=== PATIENT | female | born 1975 | race American Indian/Alaskan Native ===

== ENCOUNTER 2016-10-05 14:41 | Inpatient (IN) | payer BC, OTHER ==
[2016-10-05] MEDS ORDERED: Morphine 4 MG/ML VIAL IV STA (16:02)
[2016-10-05] MEDS ORDERED: ceFAZolin 1 GM in Sodium Chloride 0.9% 100 ML IVPB STA (16:02)
--- NOTE | 2016-10-05 16:21 | ED PDOC ---
Lower Extremity Pain/Injury Time Seen by Provider: 10/05/16 15:42 Chief Complaint (Nursing): Lower Extremity Problem/Injury Chief Complaint (Provider): Right leg pain History Per: Patient History/Exam Limitations: no limitations Onset/Duration Of Symptoms: Days (yesterday), Persistent, Worse Since (yesterday ) Current Symptoms Are (Timing): Still Present Severity: Severe Pain Scale Rating Of: 9 Additional History Per: Patient Additional Complaint(s): CC: Right leg pain. HPI: 41 yo female pt without PMH presents to the ED with pain in her R leg since yesterday worsening today, 12/11, sharp, she apply Bengay and the leg becomes red. She takes Motrin for pain without relief. Also refers back pain yesterday that improve with Motrin. Associated erythema over R leg and R foot, swelling and warm. Denies fever, nausea, vomiting, headache, injury, any other pain. L lower extremity is normal. PMH: none. PSH: C- section on 2013. Social: smoking 1 pack per day, alcohol occasional, denies any recreational drugs. Meds: Motrin for pain. Past Medical History Reviewed: Nursing Documentation, Vital Signs Vital Signs: Last Vital Signs Temp 99.3 F 10/05/16 15:11 Pulse 100 H 10/05/16 15:11 Resp 18 10/05/16 15:11 BP 119/87 10/05/16 15:11 Pulse Ox 99 10/05/16 15:11 - Medical History PMH: Denies: Asthma - Surgical History Surgical History: ( on 2013) - Family History Family History: States: Unknown Family Hx - Living Arrangements Living Arrangements: Alone - Social History Current smoker - smoking cessation education provided: Yes SMOKER/PACKS PER DAY:: 1 Alcohol: Occasional Drugs: Denies - Immunization History Hx Tetanus Toxoid Vaccination: No Hx Influenza Vaccination: No Hx Pneumococcal Vaccination: No - Allergies Allergies/Adverse Reactions: Allergies Allergy/AdvReac Type Severity Reaction Status Date / Time No Known Allergies Allergy Verified 02/23/16 19:07 Wells Criteria for PE - Wells Criteria for Pulmonary Embolism Clinical Signs and Symptoms of DVT: No P.E is #1 Diagnosis, or Equally Likely: No Heart Rate >100: No Immobilization at least 3 days;Surgery previous 4 weeks: No Previous, objectively diagnosed PE or DVT: No Hemoptysis: No Malignancy w/treatment within 6 months, or palliative: No Total Score: 0 Review of Systems ROS Statement: Except As Marked, All Systems Reviewed And Found Negative Constitutional: Negative for: Fever, Chills, Sweats, Weakness, Malaise, Weight loss Eyes: Negative for: Pain, Vision Change ENT: Negative for: Ear Pain, Nose Pain, Mouth Pain Cardiovascular: Negative for: Chest Pain, Palpitations, Edema, Light Headedness Respiratory: Negative for: Cough, Shortness of Breath Gastrointestinal: Negative for: Nausea, Vomiting, Abdominal Pain Genitourinary Female: Negative for: Dysuria, Frequency, Incontinence, Pelvic Pain Musculoskeletal: Negative for: Neck Pain Skin: Positive for: Rash (red painless, over right thigh ) Neurological: Negative for: Weakness, Numbness, Altered Mental Status, Headache Psych: Negative for: Anxiety, Depression Physical Exam - Reviewed Nursing Documentation Reviewed: Yes Vital Signs Reviewed: Yes - Physical Exam Appears: Positive for: Well, No Acute Distress Head Exam: Positive for: ATRAUMATIC, NORMOCEPHALIC Skin: Positive for: Normal Color, Dry Eye Exam: Positive for: Normal appearance, EOMI, PERRL ENT: Positive for: Normal ENT Inspection Neck: Positive for: Normal Cardiovascular/Chest: Positive for: Regular Rate, Rhythm. Negative for: Chest Non Tender, Murmur Respiratory: Positive for: Normal Breath Sounds Pulses-Radial (L): 2+ Pulses-Radial (R): 2+ Gastrointestinal/Abdominal: Positive for: Normal Exam Back: Positive for: Normal Inspection Extremity: Positive for: Normal ROM, Tenderness (on right leg ), Calf Tenderness (on right leg), Swelling (right leg and ankle) Lymphatic: Negative for: Adenopathy Neurologic/Psych: Positive for: Alert, railroad carman II-XII, Oriented - Laboratory Results Result Diagrams: 10/05/16 16:30 10/05/16 17:00 Urine POC: Sent To The Lab For Verification - ECG O2 Sat by Pulse Oximetry: 99 Pulse Ox Interpretation: Normal - Progress Re-evaluation Time: 17:59 Condition: Improving,but remains with symptoms Medical Decision Making Medical Decision Making: Impression: 41 yo female that presents with Right leg pain, erythema and swelling since yesterday. Plan: CBC CMP PTT PT Blood culture. Urine test. Urine dipstick. VBG. Duplex US right lower extremity. Morphine. Ancef. Disposition - Clinical Impression Clinical Impression: Cellulitis - Patient ED Disposition Is Patient to be Admitted: Yes Doctor Will See Patient In The: ED Counseled Patient/Family Regarding: Smoking Cessation - Disposition Disposition Time: 18:16 Condition: STABLE - Pt Status Changed To: Hospital Disposition Of: Observation
[2016-10-05 17:07] LABS: BASO % 0.2 % (0.0-2.0); HEMOGLOBIN 12.4 g/dL (12.0-16.0); LYMPH # 1.1 K/uL (1.0-4.3); LYMPH % 6.5 % (20.0-40.0); MEAN CELL VOLUME 92.4 fl (81.0-99.0); MEAN CORPUSCULAR HEMOGLOBIN 30.6 pg (27.0-31.0); MEAN CORPUSCULAR HGB CONC 33.1 g/dL (33.0-37.0); MEAN PLATELET VOLUME 8.8 fl (7.2-11.7); MONO # 0.6 K/uL (0.0-0.8); MONO % 3.6 % (0.0-10.0); NEUT # 14.5 K/uL (1.8-7.0); NEUT % 89.7 % (50.0-75.0); PLATELET COUNT 199 K/uL (130-400); RBC 4.06 Mil/uL (3.80-5.20); RED CELL DISTRIBUTION WIDTH 13.3 % (11.5-14.5); WHITE BLOOD COUNT 16.1 K/uL (4.8-10.8)
--- NOTE | 2016-10-05 17:12 | US ---
PROCEDURE: Right lower extremity venous duplex Doppler. HISTORY: Pain, swelling, redness COMPARISON: None available. TECHNIQUE: Common femoral, superficial femoral, popliteal and posterior tibial veins were evaluated. Flow was assessed with color Doppler, compressibility, assessment of phasic flow and augmentation response. FINDINGS: COMMON FEMORAL VEIN: Unremarkable. SUPERFICIAL FEMORAL VEIN: Unremarkable. POPLITEAL VEIN: Unremarkable. POSTERIOR TIBIAL VEIN: Unremarkable. OTHER FINDINGS: Multiple prominent right inguinal lymph nodes seen, nonspecific. Edema at the level of the right ankle. IMPRESSION: No evidence of deep venous thrombosis in the right lower extremity. Multiple prominent right inguinal lymph nodes seen, nonspecific. Edema at the level of the right ankle.
[2016-10-05 17:35] LABS: ALB/GLOB RATIO 1.3 (1.0-2.1); ALBUMIN 4.6 g/dL (3.5-5.0); ALT/SGPT 38 U/L (9-52); AST/SGOT 30 U/L (14-36); BLOOD UREA NITROGEN 13 mg/dl (7-17); CALCIUM 9.5 mg/dL (8.4-10.2); GFR AFRICAN-AMERICAN > 60; GFR NON-AFRICAN AMERICAN > 60
[2016-10-05 17:52] LABS: PROTHROMBIN TIME 19.2 Seconds (9.8-13.1)
[2016-10-05 17:53] LABS: INR 1.7 (0.9-1.2); PARTIAL THROMBOPLASTIN TIME 34.7 Seconds (25.6-37.1)
--- NOTE | 2016-10-05 18:39 | ED PDOC ---
- Laboratory Results Result Diagrams: 10/05/16 16:30 10/05/16 17:00 Urine POC: Sent To The Lab For Verification - ECG O2 Sat by Pulse Oximetry: 99 Disposition - Clinical Impression Clinical Impression: Cellulitis, Sepsis - POA Present On Arrival: None - Disposition Disposition: Admitted as In-Patient Disposition Time: 18:39 Condition: STABLE
[2016-10-05 18:48] LABS: VENOUS BLOOD GAS BASE EXCESS 1.3 mmol/L (0.0-2.0); VENOUS BLOOD GAS PCO2 47 mmHg (40-60); VENOUS BLOOD GAS PO2 18 mm/Hg (30-55); VENOUS BLOOD PH 7.37 (7.32-7.43)
[2016-10-05 18:51] LABS: ANISOCYTOSIS SLIGHT; BANDS 3 % (0-2); LYMPHOCYTE 9 % (20-50); MONOCYTE 4 % (0-10); NEUTROPHIL 84 % (42-75); PLATELET ESTIMATE NORMAL (NORMAL); TOTAL CELLS COUNTED 100
[2016-10-05] MEDS ORDERED: Piperacillin/Tazobact 3.375 GM in Sodium Chloride 0.9% 100 ML IVPB STA (19:01)
[2016-10-05] MEDS ORDERED: Vancomycin 1 g Inj ONE (20:09)
[2016-10-05] MEDS ORDERED: Piperacillin/Tazobact 3.375 gm Inj IVPB ONE (20:10)
--- NOTE | 2016-10-05 20:24 | CP.PCM.HP ---
History of Present Illness - History of Present Illness History of Present Illness: CC: RLE redness HPI: This is a 41 y/o female with no MHx who comes in with redness and pain of RLE. States that redness started toward the bottom of the leg/foot yesterday, and has been extending, now with red streaks up the thigh. Denies f/c/n/v/d. Denies any injury or insect/animal bite prior to onset of symptoms. Denies any prior history of MRSA infections. ROS: 14 systems reviewed, negative other than HPI MHx: None SHx: C section Allergies: NKDA Medications: None Family Hx: Reviewed, no relevant history patient can provide Social Hx: Lives alone, occ EtOH; smokes about 1 ppd for 10+ years Present on Admission - Present on Admission Any Indicators Present on Admission: No Past Patient History - Past Social History Alcohol: Occasional Drugs: Denies - CARDIAC Hx Cardiac Disorders: No - PULMONARY Hx Respiratory Disorders: No - NEUROLOGICAL Hx Neurological Disorder: No - HEENT Hx HEENT Problems: No - RENAL Hx Chronic Kidney Disease: No - ENDOCRINE/METABOLIC Hx Endocrine Disorders: No - HEMATOLOGICAL/ONCOLOGICAL Hx Blood Disorders: No - INTEGUMENTARY Hx Dermatological Problems: No - MUSCULOSKELETAL/RHEUMATOLOGICAL Hx Musculoskeletal Disorders: No - GENITOURINARY/GYNECOLOGICAL Hx Genitourinary Disorders: No - PSYCHIATRIC Hx Psychophysiologic Disorder: No Meds Allergies/Adverse Reactions: Allergies Allergy/AdvReac Type Severity Reaction Status Date / Time No Known Allergies Allergy Verified 02/23/16 19:07 Physical Exam - Constitutional Appears: No Acute Distress - Head Exam Head Exam: ATRAUMATIC, NORMOCEPHALIC - Eye Exam Eye Exam: EOMI, PERRL - ENT Exam ENT Exam: Mucous Membranes Moist - Neck Exam Neck exam: Positive for: Full Rom - Respiratory Exam Respiratory Exam: Clear to Auscultation Bilateral, NORMAL BREATHING PATTERN - Cardiovascular Exam Cardiovascular Exam: REGULAR RHYTHM, +S1, +S2 - GI/Abdominal Exam GI & Abdominal Exam: Normal Bowel Sounds, Soft - Extremities Exam Extremities exam: Positive for: full ROM Additional comments: RLE with patchy redness and streaks up to groin; some warmth to touch and some mild tenderness - Neurological Exam Neurological exam: Alert, CN II-XII Intact, Oriented x3 - Psychiatric Exam Psychiatric exam: Normal Affect, Normal Mood - Skin Skin Exam: Dry, Warm Results - Vital Signs Recent Vital Signs: Last Vital Signs Temp 98.7 F 10/05/16 20:19 Pulse 105 H 10/05/16 20:19 Resp 18 10/05/16 20:19 BP 125/73 10/05/16 20:19 Pulse Ox 98 10/05/16 20:09 - Labs Result Diagrams: 10/05/16 16:30 10/05/16 17:00 Labs: Laboratory Results - last 24 hr 10/05/16 18:44 pO2 18 L VBG pH 7.37 VBG pCO2 47 VBG HCO3 24.0 VBG Total CO2 28.6 H VBG O2 Sat (Calc) 34.9 L VBG Base Excess 1.3 VBG Potassium 3.8 Sodium 138.0 Chloride 104.0 Glucose 63 L Lactate 1.3 FiO2 21.0 Venous Blood Potassium 3.8 - Imaging and Cardiology Venous US Status: Report reviewed by me (no DVT) Assessment & Plan (1) Cellulitis Assessment and Plan: 41 y/o female with no MHx presenting with extensive RLE cellulitis. -Continue Vanco 1 g q12h IV; will D/C Zosyn, as no complicating features -Tylenol for pain/fever PRN -SQ Lovenox for DVT PPx Status: Acute (2) DVT prophylaxis Status: Acute
[2016-10-06 05:51] LABS: HEMOGLOBIN 11.9 g/dL (12.0-16.0); MEAN CELL VOLUME 92.4 fl (81.0-99.0); MEAN CORPUSCULAR HEMOGLOBIN 30.5 pg (27.0-31.0); RBC 3.89 Mil/uL (3.80-5.20); RED CELL DISTRIBUTION WIDTH 13.4 % (11.5-14.5); WHITE BLOOD COUNT 13.6 K/uL (4.8-10.8)
[2016-10-06 06:17] LABS: BLOOD UREA NITROGEN 11 mg/dl (7-17); CALCIUM 8.7 mg/dL (8.4-10.2); GFR AFRICAN-AMERICAN > 60; GFR NON-AFRICAN AMERICAN > 60
[2016-10-06] MEDS: Enoxaparin 40 mg Syringe SC SCH (08:41)
--- NOTE | 2016-10-06 11:05 | CP.PCM.PN ---
Subjective - Date & Time of Evaluation Date of Evaluation: 10/06/16 Time of Evaluation: 10:30 - Subjective Subjective: Febrile to 103 this morning sl RLE pain no open wound on LE denies CP no SOB no abd pain Objective - Vital Signs/Intake and Output Vital Signs (last 24 hours): Temp Pulse Resp BP Pulse Ox 99.6 F 89 18 125/83 97 10/06/16 08:00 10/06/16 08:00 10/06/16 08:00 10/06/16 08:00 10/06/16 08:00 - Medications Medications: Current Medications Acetaminophen (Tylenol 325mg Tab) 650 mg PO Q6 PRN PRN Reason: Pain, Mild (1-3) Acetaminophen (Tylenol 325mg Tab) 650 mg PO Q6 PRN PRN Reason: Fever >100.4 F Last Admin: 10/05/16 23:55 Dose: 650 mg Enoxaparin Sodium (Lovenox) 40 mg SC DAILY PAT PRN Reason: Protocol Last Admin: 10/06/16 08:41 Dose: 40 mg Vancomycin HCl 1 gm/ Sodium (Chloride) 250 mls @ 166.667 mls/hr IVPB Q12 PAT Last Admin: 10/06/16 08:41 Dose: 166.667 mls/hr - Labs Labs: 10/06/16 05:00 10/06/16 05:00 PT 19.2 Seconds (9.8-13.1) H 10/05/16 16:30 INR 1.7 (0.9-1.2) H 10/05/16 16:30 APTT 34.7 Seconds (25.6-37.1) 10/05/16 16:30 - Constitutional Appears: No Acute Distress - Head Exam Head Exam: ATRAUMATIC, NORMAL INSPECTION, NORMOCEPHALIC - Eye Exam Eye Exam: EOMI, Normal appearance, PERRL Pupil Exam: NORMAL ACCOMODATION - ENT Exam ENT Exam: Mucous Membranes Moist, Normal External Ear Exam - Neck Exam Neck Exam: Full ROM. absent: Meningismus - Respiratory Exam Respiratory Exam: NORMAL BREATHING PATTERN. absent: Respiratory Distress - Cardiovascular Exam Cardiovascular Exam: REGULAR RHYTHM, +S1, +S2 - GI/Abdominal Exam GI & Abdominal Exam: Soft, Normal Bowel Sounds. absent: Tenderness - Extremities Exam Extremities Exam: Full ROM, Normal Capillary Refill. absent: Calf Tenderness Additional comments: RLE : erythema, warmth, sl tenderness - Back Exam Back Exam: NORMAL INSPECTION. absent: CVA tenderness (L), CVA tenderness (R), paraspinal tenderness, vertebral tenderness - Neurological Exam Neurological Exam: Alert, Awake, CN II-XII Intact, Normal Gait, Oriented x3 Neuro motor strength exam: Left Upper Extremity: 5, Right Upper Extremity: 5, Left Lower Extremity: 5, Right Lower Extremity: 5 - Psychiatric Exam Psychiatric exam: Normal Affect, Normal Mood - Skin Skin Exam: Dry, Normal Color, Warm Assessment and Plan (1) Sepsis Status: Acute (2) Cellulitis Status: Acute (3) DVT prophylaxis Status: Acute - Assessment and Plan (Free Text) Assessment: 41 y/o female with no MHx came in with redness and pain of RLE. States that redness started toward the bottom of the leg/foot yesterday, and has been extending, now with red streaks up the thigh. Denies f/c/n/v/d. Denies any injury or insect/animal bite prior to onset of symptoms. Denies any prior history of MRSA infections. (1) Sepsis sec to Cellulitis Status: Acute Pt was febrile to 103, tachycardic, WBC 16K lactic acid normal cont IV Vanco Blood c/s Doppler US of LE : neg for DVT (2) Cellulitis , RLE Status: Acute (3) DVT prophylaxis Status: Acute Lovenox
[2016-10-07 06:28] LABS: BASO % 0.5 % (0.0-2.0); EOS # 0.3 K/uL (0.0-0.7); EOS % 3.4 % (0.0-4.0); HEMOGLOBIN 11.5 g/dL (12.0-16.0); LYMPH # 0.7 K/uL (1.0-4.3); LYMPH % 8.9 % (20.0-40.0); MEAN CELL VOLUME 92.8 fl (81.0-99.0); MEAN CORPUSCULAR HEMOGLOBIN 30.6 pg (27.0-31.0); MEAN CORPUSCULAR HGB CONC 32.9 g/dL (33.0-37.0); MEAN PLATELET VOLUME 8.6 fl (7.2-11.7); MONO # 0.7 K/uL (0.0-0.8); MONO % 9.6 % (0.0-10.0); NEUT # 5.9 K/uL (1.8-7.0); NEUT % 77.6 % (50.0-75.0); RBC 3.77 Mil/uL (3.80-5.20); WHITE BLOOD COUNT 7.6 K/uL (4.8-10.8)
[2016-10-07 06:52] LABS: BLOOD UREA NITROGEN 9 mg/dl (7-17); CALCIUM 8.5 mg/dL (8.4-10.2); GFR AFRICAN-AMERICAN > 60; GFR NON-AFRICAN AMERICAN > 60
[2016-10-07] MEDS: Enoxaparin 40 mg Syringe SC SCH (09:22)
--- NOTE | 2016-10-07 10:18 | CP.PCM.PN ---
Subjective - Date & Time of Evaluation Date of Evaluation: 10/07/16 Time of Evaluation: 10:00 - Subjective Subjective: No fever this am still with leg pain and redness no [employer] no SOB no abd pain Objective - Vital Signs/Intake and Output Vital Signs (last 24 hours): Temp Pulse Resp BP Pulse Ox 98.4 F 82 18 125/87 98 10/07/16 08:00 10/07/16 09:00 10/07/16 08:00 10/07/16 08:00 10/07/16 08:00 Intake and Output: 10/07/16 10/07/16 06:59 18:59 Intake Total 490 Balance 490 - Medications Medications: Current Medications Acetaminophen (Tylenol 325mg Tab) 650 mg PO Q6 PRN PRN Reason: Pain, Mild (1-3) Acetaminophen (Tylenol 325mg Tab) 650 mg PO Q6 PRN PRN Reason: Fever >100.4 F Last Admin: 10/06/16 17:00 Dose: 650 mg Enoxaparin Sodium (Lovenox) 40 mg SC DAILY PAT PRN Reason: Protocol Last Admin: 10/07/16 09:22 Dose: 40 mg Vancomycin HCl 1 gm/ Sodium (Chloride) 250 mls @ 166.667 mls/hr IVPB Q12 PAT Last Admin: 10/07/16 09:23 Dose: 166.667 mls/hr - Labs Labs: 10/07/16 05:00 10/07/16 05:00 PT 19.2 Seconds (9.8-13.1) H 10/05/16 16:30 INR 1.7 (0.9-1.2) H 10/05/16 16:30 APTT 34.7 Seconds (25.6-37.1) 10/05/16 16:30 - Constitutional Appears: No Acute Distress - Head Exam Head Exam: ATRAUMATIC, NORMAL INSPECTION, NORMOCEPHALIC - Eye Exam Eye Exam: EOMI, Normal appearance, PERRL Pupil Exam: NORMAL ACCOMODATION - ENT Exam ENT Exam: Mucous Membranes Moist, Normal External Ear Exam - Neck Exam Neck Exam: Full ROM. absent: Meningismus - Respiratory Exam Respiratory Exam: NORMAL BREATHING PATTERN. absent: Respiratory Distress - Cardiovascular Exam Cardiovascular Exam: REGULAR RHYTHM, +S1, +S2 - GI/Abdominal Exam GI & Abdominal Exam: Soft, Normal Bowel Sounds. absent: Tenderness - Extremities Exam Extremities Exam: Full ROM, Normal Capillary Refill. absent: Calf Tenderness Additional comments: RLE : erythema, warmth, sl tenderness lower leg - Back Exam Back Exam: NORMAL INSPECTION. absent: CVA tenderness (L), CVA tenderness (R), paraspinal tenderness, vertebral tenderness - Neurological Exam Neurological Exam: Alert, Awake, CN II-XII Intact, Normal Gait, Oriented x3 Neuro motor strength exam: Left Upper Extremity: 5, Right Upper Extremity: 5, Left Lower Extremity: 5, Right Lower Extremity: 5 - Psychiatric Exam Psychiatric exam: Normal Affect, Normal Mood - Skin Skin Exam: Dry, Normal Color, Warm Assessment and Plan (1) Sepsis Status: Acute (2) Cellulitis Status: Acute (3) DVT prophylaxis Status: Acute - Assessment and Plan (Free Text) Assessment: 41 y/o female with no MHx came in with redness and pain of RLE. States that redness started toward the bottom of the leg/foot yesterday, and has been extending, now with red streaks up the thigh. Denies f/c/n/v/d. Denies any injury or insect/animal bite prior to onset of symptoms. Denies any prior history of MRSA infections. (1) Sepsis sec to Cellulitis Status: Acute Pt was febrile to 103, tachycardic, WBC 16K WBC now trending down clinically improving lactic acid normal cont IV Vanco , check level Blood c/s: neg so far Doppler US of LE : neg for DVT (2) Cellulitis , RLE Status: Acute as above (3) DVT prophylaxis Status: Acute Lovenox
[2016-10-08 04:50] VITALS: O2SAT 99
[2016-10-08 07:56] LABS: BASO % 0.9 % (0.0-2.0); EOS # 0.3 K/uL (0.0-0.7); EOS % 5.9 % (0.0-4.0); HEMOGLOBIN 11.4 g/dL (12.0-16.0); LYMPH # 1.2 K/uL (1.0-4.3); LYMPH % 22.3 % (20.0-40.0); MEAN CELL VOLUME 91.9 fl (81.0-99.0); MEAN CORPUSCULAR HEMOGLOBIN 30.8 pg (27.0-31.0); MEAN CORPUSCULAR HGB CONC 33.5 g/dL (33.0-37.0); MEAN PLATELET VOLUME 8.4 fl (7.2-11.7); MONO # 0.6 K/uL (0.0-0.8); NEUT # 3.1 K/uL (1.8-7.0); NEUT % 58.9 % (50.0-75.0); RBC 3.71 Mil/uL (3.80-5.20); WHITE BLOOD COUNT 5.3 K/uL (4.8-10.8)
[2016-10-08 08:13] LABS: BLOOD UREA NITROGEN 13 mg/dl (7-17); CALCIUM 8.7 mg/dL (8.4-10.2); GFR AFRICAN-AMERICAN > 60; GFR NON-AFRICAN AMERICAN > 60
[2016-10-08 08:26] LABS: INR 1.1 (0.9-1.2); PROTHROMBIN TIME 12.8 Seconds (9.8-13.1)
[2016-10-08 08:27] VITALS: BP 139/82; RESP 20; TEMP 97.5
--- NOTE | 2016-10-08 09:01 | CP.PCM.DIS ---
Provider - Provider Date of Admission: 10/05/16 18:37 Attending physician: Carson Waters MD Primary care physician: None Time Spent in preparation of Discharge (in minutes): 20 Hospital Course - Lab Results Lab Results: Most Recent Lab Values WBC 5.3 K/uL (4.8-10.8) 10/08/16 06:30 RBC 3.71 Mil/uL (3.80-5.20) L 10/08/16 06:30 Hgb 11.4 g/dL (12.0-16.0) L 10/08/16 06:30 Hct 34.1 % (34.0-47.0) 10/08/16 06:30 MCV 91.9 fl (81.0-99.0) 10/08/16 06:30 MCH 30.8 pg (27.0-31.0) 10/08/16 06:30 MCHC 33.5 g/dL (33.0-37.0) 10/08/16 06:30 RDW 13.0 % (11.5-14.5) 10/08/16 06:30 Plt Count 225 K/uL (130-400) 10/08/16 06:30 MPV 8.4 fl (7.2-11.7) 10/08/16 06:30 Neut % (Auto) 58.9 % (50.0-75.0) 10/08/16 06:30 Lymph % (Auto) 22.3 % (20.0-40.0) 10/08/16 06:30 [place] % (Auto) 12.0 % (0.0-10.0) H 10/08/16 06:30 Eos % (Auto) 5.9 % (0.0-4.0) H 10/08/16 06:30 Baso % (Auto) 0.9 % (0.0-2.0) 10/08/16 06:30 Neut # 3.1 K/uL (1.8-7.0) 10/08/16 06:30 Lymph # 1.2 K/uL (1.0-4.3) 10/08/16 06:30 [place] # 0.6 K/uL (0.0-0.8) 10/08/16 06:30 Eos # 0.3 K/uL (0.0-0.7) 10/08/16 06:30 Baso # 0.0 K/uL (0.0-0.2) 10/08/16 06:30 Neutrophils % (Manual) 84 % (42-75) H 10/05/16 16:30 Band Neutrophils % 3 % (0-2) H 10/05/16 16:30 Lymphocytes % (Manual) 9 % (20-50) L 10/05/16 16:30 Monocytes % (Manual) 4 % (0-10) 10/05/16 16:30 Platelet Estimate Normal (NORMAL) 10/05/16 16:30 Anisocytosis (manual) Slight 10/05/16 16:30 PT 12.8 Seconds (9.8-13.1) D 10/08/16 06:30 INR 1.1 (0.9-1.2) D 10/08/16 06:30 APTT 34.7 Seconds (25.6-37.1) 10/05/16 16:30 pO2 18 mm/Hg (30-55) L 10/05/16 18:44 VBG pH 7.37 (7.32-7.43) 10/05/16 18:44 VBG pCO2 47 mmHg (40-60) 10/05/16 18:44 VBG HCO3 24.0 mmol/L 10/05/16 18:44 VBG Total CO2 28.6 mmol/L (22-28) H 10/05/16 18:44 VBG O2 Sat (Calc) 34.9 % (40-65) L 10/05/16 18:44 VBG Base Excess 1.3 mmol/L (0.0-2.0) 10/05/16 18:44 VBG Potassium 3.8 mmol/L (3.6-5.2) 10/05/16 18:44 Sodium 138.0 mmol/L (132-148) 10/05/16 18:44 Chloride 104.0 mmol/L (98-107) 10/05/16 18:44 Glucose 63 mg/dL (65-105) L 10/05/16 18:44 Lactate 1.3 mmol/L (0.7-2.1) 10/05/16 18:44 FiO2 21.0 % 10/05/16 18:44 Sodium 141 mmol/l (132-148) 10/08/16 06:30 Potassium 3.6 MMOL/L (3.6-5.0) 10/08/16 06:30 Chloride 109 mmol/L (98-107) H 10/08/16 06:30 Carbon Dioxide 23 mmol/L (22-30) 10/08/16 06:30 Anion Gap 13 (10-20) 10/08/16 06:30 BUN 13 mg/dl (7-17) 10/08/16 06:30 Creatinine 0.7 mg/dL (0.7-1.2) 10/08/16 06:30 Est GFR ( Amer) > 60 10/08/16 06:30 Est GFR (Non-Af Amer) > 60 10/08/16 06:30 Random Glucose 92 mg/dL (65-105) 10/08/16 06:30 Calcium 8.7 mg/dL (8.4-10.2) 10/08/16 06:30 Total Bilirubin 1.1 mg/dl (0.2-1.3) 10/05/16 17:00 AST 30 U/L (14-36) 10/05/16 17:00 ALT 38 U/L (9-52) 10/05/16 17:00 Alkaline Phosphatase 66 U/L (38-126) 10/05/16 17:00 Total Protein 8.2 G/DL (6.3-8.2) 10/05/16 17:00 Albumin 4.6 g/dL (3.5-5.0) 10/05/16 17:00 Globulin 3.7 gm/dL (2.2-3.9) 10/05/16 17:00 Albumin/Globulin Ratio 1.3 (1.0-2.1) 10/05/16 17:00 Venous Blood Potassium 3.8 mmol/L (3.6-5.2) 10/05/16 18:44 Vancomycin Trough < 5.0 ug/mL (5.0-10.0) L 10/07/16 20:00 - Hospital Course Hospital Course: 41 y/o female with no MHx came in with redness and pain of RLE. States that redness started toward the bottom of the leg/foot yesterday, and has been extending, now with red streaks up the thigh. Denies f/c/n/v/d. Denies any injury or insect/animal bite prior to onset of symptoms. Denies any prior history of MRSA infections.Patient was found to be febrile Tmax 103 , tachycardic with WBC 16 K. She was admitrted with sepsis secondary to cellulitis. Physical exam was significant for RLE edema with cellulitis from ankle to knee and with intertrigous macerations . She was started on Clotrimazole topical and vancomycin IV Venous doppler showed no DVT. Patient clinically improved, redness and swelling to lower extremity subsiding. She remained afebrile for 48 hours and WBC normalized to normal. Patient ambulated in unit. will discharge patient home on Po clindamycin 300 mg po TID for 7 days and clotrimazole topical in between the toes. counselled patient on compliance with PO meds, continuing ambulation and RLe elevation while sitted. Advice follow up with [facility] (1) Sepsis sec to Cellulitis clinically improving blood cx with no growtjafebril efor 48 hours and WBC normalized to normal Received Vancomycin Iv for 3 days Will d/c on Clindamycin PO (2) Cellulitis , RLE will d/c on Po clindamycin 3.Tinea Pedis clotrimazole topical Discharge Exam - Head Exam Head Exam: ATRAUMATIC, NORMAL INSPECTION, NORMOCEPHALIC - Eye Exam Eye Exam: EOMI, Normal appearance, PERRL Pupil Exam: NORMAL ACCOMODATION - ENT Exam ENT Exam: Mucous Membranes Moist, Normal Exam - Neck Exam Neck exam: Full Rom, Normal Inspection - Respiratory Exam Respiratory Exam: Clear to PA & Lateral, NORMAL BREATHING PATTERN. absent: Rales, Rhonchi, Wheezes - Cardiovascular Exam Cardiovascular Exam: REGULAR RHYTHM, RRR, +S1, +S2. absent: JVD - GI/Abdominal Exam GI & Abdominal Exam: Normal Bowel Sounds, Soft. absent: Distended, Guarding, Rebound, Tenderness - Rectal Exam Rectal Exam: Deferred - Extremities Exam Extremities exam: normal inspection, pedal pulses present Additional comments: edema to RLE minimal erythema extending from ankle to kne - Back Exam Back exam: NORMAL INSPECTION - Neurological Exam Neurological exam: Alert, CN II-XII Intact, Oriented x3, Reflexes Normal - Psychiatric Exam Psychiatric exam: Normal Affect, Normal Mood - Skin Skin Exam: Dry, Intact, Normal Color, Warm Discharge Plan - Discharge Medications Prescriptions: Clindamycin [Cleocin] 300 mg PO TID #21 cap - Follow Up Plan Condition: STABLE Disposition: HOME/ ROUTINE Patient education suggested?: Yes Instructions: Cellulitis (DC) Additional Instructions: Activity as tolerated. Regular Diet. Referrals: [facility] [place] [Outside]
[2016-10-08] MEDS: Enoxaparin 40 mg Syringe SC SCH (10:28)
[2016-10-08 11:52] VITALS: PULSE 74
== END 2016-10-08 11:43 | disposition home or self-care (01) | DRG 872 ==
LOC: H.ER 14:41 → H.ERHOLD 18:37 → H.TEL 21:46
DX: A41.9 Sepsis, unspecified organism (principal); L03.115 Cellulitis of right lower limb; B35.3 Tinea pedis; F17.210 Nicotine dependence, cigarettes, uncomplicated

== ENCOUNTER 2017-11-30 08:30 | Emergency (ER) | payer BC ==
[2017-11-30 08:34] VITALS: TEMP 97; O2SAT 99
[2017-11-30 08:35] VITALS: BMI 30.7
--- NOTE | 2017-11-30 09:22 | ED PDOC ---
HPI: Hypertension/Hypotension Time Seen by Provider: 11/30/17 09:09 Chief Complaint (Nursing): High Blood Pressure History Per: Patient Onset/Duration Of Symptoms: Days (1) Current Symptoms Are (Timing): Better Associated Symptoms: Headache. denies: Chest Pain, Dyspnea, Blurred Vision, Focal Weakness Severity: Mild Additional Complaint(s): Headache since last night. Checked BP at home and found to be elevated. Has been non-compliant with BP meds. Has not taken meds since her baby was born. Denies chest pain, SOB or focal weakness. Past Medical History Vital Signs: Last Vital Signs Temp 97 F L 11/30/17 08:34 Pulse 85 11/30/17 09:04 Resp 20 11/30/17 08:34 BP 134/86 11/30/17 09:04 Pulse Ox 99 11/30/17 08:34 - Medical History PMH: HTN Denies: Asthma, Chronic Kidney Disease - Surgical History Surgical History: ( on 2013) - Family History Family History: States: Unknown Family Hx - Immunization History Hx Tetanus Toxoid Vaccination: No Hx Influenza Vaccination: No Hx Pneumococcal Vaccination: No - Home Medications Home Medications: Ambulatory Orders Medication Instructions Recorded Clindamycin [Cleocin] 300 mg PO TID #21 cap 10/08/16 Clotrimazole 1% Cream [Lotrimin 1% 1 applic TOP BID 10/08/16 CREAM] - Allergies Allergies/Adverse Reactions: Allergies Allergy/AdvReac Type Severity Reaction Status Date / Time No Known Allergies Allergy Verified 02/23/16 19:07 Review of Systems ROS Statement: Except As Marked, All Systems Reviewed And Found Negative Cardiovascular: Negative for: Chest Pain Respiratory: Negative for: Shortness of Breath Neurological: Positive for: Headache. Negative for: Weakness, Numbness Physical Exam - Reviewed Nursing Documentation Reviewed: Yes Vital Signs Reviewed: Yes - Physical Exam Appears: Positive for: Non-toxic, No Acute Distress Head Exam: Positive for: ATRAUMATIC, NORMAL INSPECTION, NORMOCEPHALIC Skin: Positive for: Normal Color, Warm, DRY Eye Exam: Positive for: EOMI, Normal appearance, PERRL ENT: Positive for: Normal ENT Inspection Neck: Positive for: Normal, Painless ROM Cardiovascular/Chest: Positive for: Regular Rate, Rhythm Respiratory: Positive for: CNT, Normal Breath Sounds Gastrointestinal/Abdominal: Positive for: Normal Exam, Soft Back: Positive for: Normal Inspection Extremity: Positive for: Normal ROM Neurologic/Psych: Positive for: Alert, Oriented - ECG O2 Sat by Pulse Oximetry: 99 Medical Decision Making Medical Decision Making: EKG reveals NSR 70 with inverted T waves V3-V5. No EKG for comparison. No other ischemic changes and no sxs of chest pain or SOB Disposition - Clinical Impression Clinical Impression: Hypertension - Patient ED Disposition Is Patient to be Admitted: No Counseled Patient/Family Regarding: Studies Performed, Diagnosis, Need For Followup - Disposition Referrals: [facility] [Outside] Disposition: Routine/Home Disposition Time: 10:16 Condition: FAIR Instructions: High Blood Pressure in Adults, Low Salt Diet Forms: [employer] ([employer])
[2017-11-30 11:00] VITALS: BP 130/82; PULSE 82; RESP 18
== END 2017-11-30 10:35 | disposition home or self-care (01) ==
LOC: H.ER 08:30
DX: I10 Essential (primary) hypertension (principal)